=== PATIENT | male | born 1970 | race African-American/Black ===

== ENCOUNTER 2017-12-22 15:49 | Inpatient (IN) ==
--- NOTE | 2017-12-22 16:23 | XR ---
EXAM DATE: 12/22/2017 4:18 PM EST AGE/SEX: 47 years / Male INDICATIONS: . Congestion and cough. CLINICAL DATA: This is the patient's initial encounter. Patient reports that signs and symptoms have been present for 3 weeks and indicates a pain score of 0/10. MEDICAL/SURGICAL HISTORY: Hypertension. Diabetes. None. COMPARISON: No prior exams available for comparison. FINDINGS: AP and lateral views of the chest demonstrate the lungs to be symmetrically aerated without evidence of mass, infiltrate or effusion. There is some hyperaeration bilaterally. The cardiomediastinal cont ours are unremarkable. Osseous structures are intact. CONCLUSION: No acute intrathoracic disease. Electronically signed by: Timothy Suarez MD 12/22/2017 4:22 PM EST
[2017-12-22] MEDS ORDERED: MethylPREDNISolone Sod Succinate Inj 125 MG/2 ML Vial IV.PUSH ONE (16:30)
--- NOTE | 2017-12-22 16:33 | ED ---
HPI General Chief Complaint: Respiratory Symptoms Stated Complaint: Chest Congestion/Coughing [id number] Time Seen by Provider: 12/22/17 16:13 Source: patient Mode of arrival: ambulatory Limitations: no limitations History of Present Illness The patient is a 47-year-old -Citizen Of [place] male who presents to the emergency department via private vehicle for shortness of breath. The patient notes a 3-week history of shortness of breath that has been progressive and producing yellow to green sputum. The patient also complains of wheezing. The patient does have a history of tobacco use, denies any known history of CHF, cardiomyopathy, pulmonary embolism, or DVT. He denies any recent hospitalizations or surgeries, however, did recently travel from [place] to [place] via car approximately 28 hours in October. The patient denies any fever, chills, or sweats. The patient does drink 1-2 pints of alcohol per day. The patient denies any chest pain or pleuritic pain. He denies any associated nausea, vomiting, diarrhea, or abdominal pain. Symptoms are moderate and progressive. There are no current alleviating factors. MD Complaint: Reports shortness of breath Onset (ago): week(s) Context: Reports recent illness Severity: moderate Consistency/Duration: constant and progressively worsening Relieving factors: nothing Exacerbating factors: nothing Associated symptoms: Reports cough, wheezing and sputum production Treatment prior to arrival: Reports none Related Data Home Medications Medication Instructions Recorded Confirmed alprazolam 0.5 mg PO TID 12/22/17 12/22/17 amlodipine 5 mg PO DAILY 12/22/17 12/22/17 atorvastatin 10 mg PO DAILY 12/22/17 12/22/17 bisoprolol fumarate 5 mg PO DAILY 12/22/17 12/22/17 cyclobenzaprine 5 mg PO TID 12/22/17 12/22/17 fenofibrate 150 mg PO DAILY 12/22/17 12/22/17 metformin 1,000 mg PO BID 12/22/17 12/22/17 pantoprazole 20 mg PO DAILY 12/22/17 12/22/17 venlafaxine 75 mg PO DAILY 12/22/17 12/22/17 Allergies Allergy/AdvReac Type Severity Reaction Status Date / Time No Known Allergies Allergy Verified 12/22/17 15:55 Review of Systems ROS: all other systems reviewed are negative ON LICENSE OF [facility] Medical History Medical History Anxiety (Acute) Chronic GERD (Acute) Diabetes (Acute) High cholesterol (Acute) Hypertension (Acute) Social History Social History Substance History: Active Abuse Smoking Status: Heavy tobacco smoker Tobacco Type: Cigarettes How Often Do You Have a Drink Containing Alcohol: 4 or more times a week Substance Abuse Detail Alcohol: Substance Use Status: Active Substance Frequency: daily: 1 to 2 pints of vodka Last Used: today Immunization History Tetanus Immunization: Unsure Exam Narrative Exam Narrative: GENERAL: Awake, alert, pleasant 47-year-old male who appears his stated age and is in mild respiratory distress. SKIN: Focused skin assessment warm/dry. HEAD: Atraumatic. Normocephalic. EYES: Pupils equal and round. No scleral icterus. No injection or drainage. ENT: No nasal bleeding or discharge. Mucous membranes pink and moist. NECK: Trachea midline. No JVD. CARDIOVASCULAR: Regular rate and rhythm. No murmur appreciated. Heart rate in the 90s per RESPIRATORY: No accessory muscle use. Prolonged expiratory phase with wheezing noted. GASTROINTESTINAL: Abdomen soft, non-tender, nondistended. MUSCULOSKELETAL: No obvious deformities. No clubbing. No cyanosis. No edema. NEUROLOGICAL: Awake and alert. No obvious cranial nerve deficits. Motor grossly within normal limits. Normal speech. PSYCHIATRIC: Appropriate mood and affect; insight and judgment normal. Course Initial Documented Vital Signs Temperature 99.3 F 12/22/17 15:51 Pulse Rate 89 12/22/17 15:51 Respiratory Rate 16 12/22/17 15:51 Blood Pressure 140/87 12/22/17 15:51 Pulse Oximetry 93 L 12/22/17 15:51 Last Documented Vital Signs Temperature 99.3 F 12/22/17 15:51 Pulse Rate 88 12/22/17 18:05 Respiratory Rate 18 12/22/17 18:05 Blood Pressure 134/79 12/22/17 18:05 Pulse Oximetry 92 L 12/22/17 18:05 Medical Decision Making [facility] Narrative Medical decision making narrative: IV was established, labs are drawn and sent, and the patient was placed on cardiac telemetry monitoring and continuous pulse oximetry monitoring. EKG was ordered and interpreted. Chest x-ray was obtained. The patient was administered duo nebs, Solu-Medrol, and IV fluids. Chest x-ray was clear, the patient had an O2 saturation of 92% on room air with recent travel from [place] to [place], therefore, CT pulmonary angiogram was ordered to rule out PE. CT pulmonary angiogram was negative for PE, however, does reveal inflammatory changes in the lower lungs bilaterally, most likely representing pneumonia with a temperature 99.3 and a hypoxia. The patient's initial O2 sat was 92%, he was taken off of O2 via nasal cannula and dropped to 86%. Ambulation test was performed and the patient stayed at 86%. The patient does not have home O2, therefore, will be admitted for oxygen therapy, nebulizers, steroids, and antibiotics. The patient appears to have community- acquired pneumonia with hypoxia. The on-call medical service was paged for admission. I discussed the patient with Dr. Souza who agrees with admission. Medical Screen Exam Complete: Yes Emergency Medical Condition: Yes Differential Diagnosis Differential Diagnosis: Differential diagnosis includes pulmonary embolism, bronchitis, pneumonia, COPD, cardiomyopathy, pleural effusion, pulmonary edema, ACS, STEMI. Lab Data Result diagrams: 12/22/17 16:45 12/22/17 16:45 Lab Results 12/22/17 12/22/17 12/22/17 Range/Units 16:45 16:45 16:45 CBC w Diff Slide review pending WBC 10.0 (4.0-11.0) th/mm3 RBC 4.15 L (4.50-5.90) mil/mm3 Hgb 15.0 (13.0-17.0) gm/dL Hct 41.2 (39.0-51.0) % MCV 99.3 (80.0-100.0) fL MCH 36.2 H (27.0-34.0) pg MCHC 36.4 H (32.0-36.0) % RDW 13.0 (11.6-17.2) % Plt Count 351 (150-450) th/mm3 MPV 7.7 (7.0-11.0) fL Neut % (Auto) 55.2 (16.0-70.0) % Lymph % (Auto) 33.1 (9.0-44.0) % Gregory % (Auto) 8.4 H (0.0-8.0) % Eos % (Auto) 2.4 (0.0-4.0) % Baso % (Auto) 0.9 (0.0-2.0) % Neut # (Auto) 5.6 (1.8-7.7) th/mm3 Lymph # (Auto) 3.3 (1.0-4.8) th/mm3 Gregory # (Auto) 0.8 (0.0-0.9) th/mm3 Eos # (Auto) 0.2 (0.0-0.4) th/mm3 Baso # (Auto) 0.1 (0.0-0.2) th/mm3 WBC Differential . Diff Scan Auto diff confirmed Differential Comment . PT 10.2 (9.8-11.6) sec INR 1.0 Ratio APTT 28.6 (23.4-31.7) sec Sodium 140 (136-145) meq/L Potassium 3.3 L (3.5-5.1) meq/L Chloride 106 (98-107) meq/L Carbon Dioxide 21.8 (21.0-32.0) meq/L Anion Gap 12 (5-15) meq/L BUN 11 (7-18) mg/dL Creatinine 1.30 (0.60-1.30) mg/dL Estimated GFR 72 L (>89) mL/min Random Glucose 94 (74-106) mg/dL Calcium 9.5 (8.5-10.1) mg/dL Magnesium 1.8 (1.5-2.5) mg/dL Total Bilirubin 0.4 (0.2-1.0) mg/dL AST 45 H (15-37) U/L ALT 42 (12-78) U/L Alkaline Phosphatase 54 (45-117) U/L Troponin I Less than 0.02 L (0.02-0.05) ng/mL Total Protein 8.4 H (6.4-8.2) g/dL Albumin 3.8 (3.4-5.0) g/dL Imaging Data Radiologist's impression: Chest X-Ray 12/22/17 00:00 CONCLUSION: No acute intrathoracic disease. Chest CTA 12/22/17 16:30 CONCLUSION: 1. No evidence of pulmonary embolus. ECG Data EKG Prior to Arrival: No Attestation: I personally reviewed and interpreted this ECG as follows: Interpretation: EKG reveals normal sinus rhythm with a rate of 90. Inverted T wave in lead III. Discharge Plan Discharge Disposition Patient Disposition: 30 Still Patient Discharge Condition Condition: Stable Discharge Details Diagnosis: Community acquired pneumonia, Hypoxia Physicians Team ED Provider: Severiano Eller Primary Care Provider: Primary Care Rosemarie Cardenas Rxs /Orders / Referrals /Forms Prescriptions: No Action atorvastatin 10 mg Tablet 10 mg PO DAILY RF: 0 amlodipine 5 mg Tablet 5 mg PO DAILY RF: 0 pantoprazole 20 mg Tablet,Delayed Release (Dr/Ec) 20 mg PO DAILY RF: 0 bisoprolol fumarate 5 mg Tablet 5 mg PO DAILY RF: 0 alprazolam 0.5 mg Tablet 0.5 mg PO TID RF: 0 metformin 1,000 mg Tablet 1,000 mg PO BID RF: 0 cyclobenzaprine 5 mg Tablet 5 mg PO TID RF: 0 fenofibrate 150 mg Capsule 150 mg PO DAILY RF: 0 venlafaxine 75 mg Tablet Extended Release 24hr 75 mg PO DAILY RF: 0 Discharge Interventions Interventions: Vital Signs Last Done: 12/22/17 18:05 Status ED Status: Pending Admission
[2017-12-22] MEDS ORDERED: Sodium Chlor 0.9% Inj 500 ML IV.SIG SCH (17:00)
[2017-12-22 17:06] LABS: Chloride 106 meq/L (98-107); Potassium 3.3 meq/L (3.5-5.1); Sodium 140 meq/L (136-145)
[2017-12-22 17:10] LABS: Albumin 3.8 g/dL (3.4-5.0); Anion Gap 12 meq/L (5-15); Blood Urea Nitrogen 11 mg/dL (7-18); Calcium 9.5 mg/dL (8.5-10.1); Carbon Dioxide 21.8 meq/L (21.0-32.0); Glucose,Random 94 mg/dL (74-106); Magnesium 1.8 mg/dL (1.5-2.5)
[2017-12-22 17:12] LABS: Activated Partial Thrombo Time 28.6 sec (23.4-31.7); Prothrombin Time 10.2 sec (9.8-11.6)
[2017-12-22 17:13] LABS: Alanine Aminotransferase 42 U/L (12-78); Aspartate Aminotransferase 45 U/L (15-37)
[2017-12-22 17:14] LABS: Glomerular Filtration Rate 72 mL/min (>89)
[2017-12-22 17:15] LABS: Total Protein 8.4 g/dL (6.4-8.2)
[2017-12-22 17:16] LABS: Alkaline Phosphatase 54 U/L (45-117)
[2017-12-22 17:18] LABS: Baso # (Auto) 0.1 th/mm3 (0.0-0.2); Baso % (Auto) 0.9 % (0.0-2.0); Eos # (Auto) 0.2 th/mm3 (0.0-0.4); Eos % (Auto) 2.4 % (0.0-4.0); Hematocrit 41.2 % (39.0-51.0); Lymph # (Auto) 3.3 th/mm3 (1.0-4.8); Lymph % (Auto) 33.1 % (9.0-44.0); Mean Corpuscular Hemoglobin 36.2 pg (27.0-34.0); Mean Corpuscular Volume 99.3 fL (80.0-100.0); Mean Platelet Volume 7.7 fL (7.0-11.0); Mono # (Auto) 0.8 th/mm3 (0.0-0.9); Mono % (Auto) 8.4 % (0.0-8.0); Neut # (Auto) 5.6 th/mm3 (1.8-7.7); Neut % (Auto) 55.2 % (16.0-70.0); Platelet Count 351 th/mm3 (150-450); Red Blood Count 4.15 mil/mm3 (4.50-5.90)
[2017-12-22 17:24] LABS: Mean Corpuscular HGB Conc 36.4 % (32.0-36.0)
--- NOTE | 2017-12-22 18:05 | CT ---
EXAM DATE: 12/22/2017 5:58 PM EST AGE/SEX: 47 years / Male INDICATIONS: Short of breath. Cough. CLINICAL DATA: This is the patient's initial encounter. Patient reports that signs and symptoms have been present for 3 weeks and indicates a pain score of 5/10. MEDICAL/SURGICAL HISTORY: Gastroesophageal reflux disease. Diabetes. Hypertension. None. RADIATION DOSE: 20.73 CTDI (mGy) COMPARISON: No prior exams available for comparison. TECHNIQUE: Volumetric scanning was performed using a multi-row detector CT scanner during bolus infu merritt of 75 ml Omnipaque 350 (iohexol) nonionic water-soluble contrast as a single exam dose. The alicja a was post processed with a variety of visualization algorithms including full volume maximum intensi ty projection and sliding thin slab reformation. Using automated exposure control and adjustment of the mA and/or kV according to patient size, radiation dose was kept as low as reasonably achievable t o obtain optimal diagnostic quality images. DICOM format image data is available electronically for review and comparison. FINDINGS: Pulmonary Arteries: No filling defects to suggest pulmonary was. Lung: Mild groundglass opacity at the lung bases along with mild centrilobular nodularity likely are presenting inflammatory change. Effusion: None. Mediastinum: But no beyond yesterday Other: The axilla is unremarkable. CONCLUSION: 1. No evidence of pulmonary embolus. Electronically signed by: Abran Sutherland MD 12/22/2017 6:03 PM EST
[2017-12-22] MEDS ORDERED: Bisacodyl 10 MG Supp RECTAL PRN (18:54)
[2017-12-22] MEDS ORDERED: Acetaminophen 325 MG Tablet PO PRN (18:54)
[2017-12-22] MEDS ORDERED: Haloperidol Inj 5 MG/ML Ampul IV.PUSH PRN (18:57)
[2017-12-22] MEDS ORDERED: LORazepam 1 MG Tablet PO PRN (18:57)
[2017-12-22] MEDS ORDERED: Enoxaparin Inj 40 MG/0.4 ML Syringe SQ SCH (20:00)
--- NOTE | 2017-12-22 20:29 | P.HP ---
History of Present Illness Service: Hospitalist Primary Care Physician: No Primary Care Physician Chief Complaint: Cough, shortness of breath History of Present Illness: Mr. Friend is a pleasant 47-year-old -[place] male with a history of diabetes mellitus, hypertension, hyperlipidemia, sleep apnea who presents to the emergency department on 12/22/2017 due to significant productive cough, shortness of breath, subjective fever that started 3 weeks prior to this admission. He has been having yellow to green sputum production. He also complains of wheezing. Patient denies any chest pain, abdominal pain, changes in bladder or bowel habits. Patient recently moved from [place] to [place]. CT angiogram was done in the ED which showed no PE. On room air his oxygen saturation dropped to 86%. Patient was given steroid, breathing treatments, antibiotics in the ED. Past medical history: Diabetes mellitus, hypertension, hyperlipidemia, sleep apnea Past surgical history: Back surgery Social history: Patient smokes 1 pack a day. Drinks Fifth a day. Denies using illicit drugs Family history: Mother with diabetes mellitus and variceal bleed due to alcoholic liver disease, father had diabetes mellitus and . Inpatient Certification: I certify that the inpatient services were ordered in accordance with Medicare regulations governing the order. This includes certification that hospital inpatient services are reasonable and necessary and in the case of services not specified as inpatient-only under 42 CFR 419.22(n), that they are appropriately provided as inpatient services in accordance to with the 2-midnight benchmark under 43 CFR 412.3(e) Estimated Total Length of Stay (Days): 2 Plans for Post Hospital Care: Home Review of Systems All other systems reviewed negative except as stated in HPI [facility] - History History Provided By: Patient, Significant Other - Medical History Medical History: Medical History (Last Reviewed 12/22/17 @ 21:51 by Archana Souza DO) Anxiety Chronic GERD Diabetes High cholesterol Hypertension - Tobacco History Tobacco Use In Past 30 Days: Yes Smoking Status: Heavy tobacco smoker Tobacco Type: Cigarettes - Alcohol History How Often Do You Have a Drink Containing Alcohol: 4 or more times a week - Substance Use History Substance History: Active Abuse - Substance Use Type Alcohol Status: Active Frequency: daily: 1 to 2 pints of vodka Last Used: today - Immunization History Tetanus Immunization: Unsure Medications and Allergies Active Medications: Active Medications Acetaminophen (Tylenol) 650 mg PO Q4H PRN PRN Reason: Headache, fever, pain 1-4 Al Hydroxide/Mg Hydroxide (Milk Of Magnesia Liq) 30 ml PO Q12H PRN PRN Reason: Mild Constipation Albuterol (Duoneb Neb (Michela)) 1 ampul NEB Q6HR WHILE AWAKE NEB [facility] Last Admin: 12/22/17 19:41 Dose: 1 ampul Albuterol (Duoneb Neb (Prn)) 1 ampul NEB Q4HR NEB PRN PRN Reason: DYSPNEA Bisacodyl (Dulcolax Supp) 10 mg RECTAL DAILY PRN PRN Reason: SEVERE CONSITIPATION Enoxaparin Sodium (Lovenox Inj) 40 mg SQ Q24H MICHELA Flumazenil (Romazecon Inj) 0.2 mg IV.PUSH Q1M PRN PRN Reason: OVERSEDATION Haloperidol Lactate (Haldol Inj) 1 mg IV.PUSH Q15M PRN PRN Reason: for severe agitation Lactulose (Lactulose Liq) 30 ml PO DAILY PRN PRN Reason: SEVERE CONSITIPATION Levofloxacin (Levaquin) 750 mg PO DAILY [facility] Stop: 12/29/17 08:59 Lorazepam (Ativan) 1 mg PO Q4H PRN PRN Reason: for CIWA 8-10 Lorazepam (Ativan) 2 mg PO Q2H PRN PRN Reason: for CIWA 11-14 Lorazepam (Ativan Inj) 2 mg IV.PUSH Q2H PRN PRN Reason: for CIWA 11-14 Lorazepam (Ativan Inj) 2 mg IV.PUSH Q1H PRN PRN Reason: for CIWA 15-20 Lorazepam (Ativan Inj) 2 mg IV.PUSH Q15M PRN PRN Reason: for CIWA > 20 Lorazepam (Ativan Inj) 1 mg IV.PUSH Q4H PRN PRN Reason: for CIWA 8-10 Ondansetron HCl (Zofran Inj) 4 mg IV.PUSH Q6H PRN PRN Reason: NAUSEA OR VOMITING Sennosides (Senokot) 17.2 mg PO Q12H PRN PRN Reason: Moderate Constipation Allergies Allergy/AdvReac Type Severity Reaction Status Date / Time No Known Allergies Allergy Verified 12/22/17 15:55 Home Medications Medication Instructions Recorded Confirmed Type alprazolam 0.5 mg PO TID 12/22/17 12/22/17 History amlodipine 5 mg PO DAILY 12/22/17 12/22/17 History atorvastatin 10 mg PO DAILY 12/22/17 12/22/17 History bisoprolol fumarate 5 mg PO DAILY 12/22/17 12/22/17 History cyclobenzaprine 5 mg PO TID 12/22/17 12/22/17 History fenofibrate 150 mg PO DAILY 12/22/17 12/22/17 History metformin 1,000 mg PO BID 12/22/17 12/22/17 History pantoprazole 20 mg PO DAILY 12/22/17 12/22/17 History venlafaxine 75 mg PO DAILY 12/22/17 12/22/17 History Exam Vital signs: Vital Signs 12/22/17 15:51 12/22/17 16:49 12/22/17 16:58 Temperature 99.3 F Pulse Rate 89 89 86 Respiratory Rate 16 24 20 Blood Pressure 140/87 145/89 H Pulse Oximetry 93 L 93 L 12/22/17 17:00 12/22/17 18:05 12/22/17 19:41 Temperature Pulse Rate 86 88 90 Respiratory Rate 18 18 Blood Pressure 134/79 Pulse Oximetry 93 L 92 L 95 12/22/17 20:09 Temperature Pulse Rate 89 Respiratory Rate Blood Pressure 128/81 Pulse Oximetry 94 L Intake & Output 12/22/17 12/22/17 12/23/17 06:59 18:59 06:59 Intake Total 500 / 500 150 / 150 Balance 500 / 500 150 / 150 Weight 116 kg Intake: IV 500 / 500 150 / 150 Levaquin 750 mg Premix Inj 150 150 / 150 ML @ 100 mls/hr IV.SIG ONCE ONE Rx#:[id number] NS Inj 500 ML @ 1000 mls/hr IV. 500 / 500 SIG BOLUS MICHELA Rx#:[id number] Narrative: GENERAL: This is a well-nourished, well-developed patient, in no apparent distress. SKIN: No rashes, ecchymoses or lesions. Warm and dry. HEAD: Atraumatic. Normocephalic. No temporal or scalp tenderness. EYES: Pupils equal round and reactive. No injection or drainage. ENT: Nose without bleeding, purulent drainage or septal hematoma. Airway patent. NECK: Trachea midline. No lymphadenopathy. Supple, nontender, no meningeal signs. CARDIOVASCULAR: Regular rate and rhythm without murmurs, gallops, or rubs. No JVD. RESPIRATORY: Moderate air entry. Diffuse wheezing noted especially in the upper lung [place]. GASTROINTESTINAL: Abdomen soft, non-tender, nondistended. No guarding. MUSCULOSKELETAL: Extremities without clubbing, cyanosis, or edema. NEUROLOGICAL: Awake and alert. Cranial nerves II through XII intact. No focal neurological deficits. Normal speech. Results - Labs CBC & Chem 7: 12/22/17 16:45 12/22/17 16:45 Labs: Laboratory Results - last 24 hr 12/22/17 12/22/17 12/22/17 16:45 16:45 16:45 CBC w Diff Slide review pending WBC 10.0 RBC 4.15 L Hgb 15.0 Hct 41.2 MCV 99.3 MCH 36.2 H MCHC 36.4 H RDW 13.0 Plt Count 351 MPV 7.7 Neut % (Auto) 55.2 Lymph % (Auto) 33.1 [place] % (Auto) 8.4 H Eos % (Auto) 2.4 Baso % (Auto) 0.9 Neut # (Auto) 5.6 Lymph # (Auto) 3.3 [place] # (Auto) 0.8 Eos # (Auto) 0.2 Baso # (Auto) 0.1 WBC Differential . Diff Scan Auto diff confirmed Differential Comment . PT 10.2 INR 1.0 APTT 28.6 Sodium 140 Potassium 3.3 L Chloride 106 Carbon Dioxide 21.8 Anion Gap 12 BUN 11 Creatinine 1.30 Estimated GFR 72 L Random Glucose 94 Calcium 9.5 Magnesium 1.8 Total Bilirubin 0.4 AST 45 H ALT 42 Alkaline Phosphatase 54 Troponin I Less than 0.02 L Total Protein 8.4 H Albumin 3.8 - Imaging Impressions Chest X-Ray 12/22/17 00:00 CONCLUSION: No acute intrathoracic disease. Chest CTA 12/22/17 16:30 CONCLUSION: 1. No evidence of pulmonary embolus. Caprini VTE Risk Assessment Caprini VTE Risk Assessment: Moderate/High Risk (score >= 2) Caprini Risk Assessment Model: Point Value = 1 Point Value = 2 Point Value = 3 Point Value = 5 Age 41-60 Minor surgery BMI > 25 kg/m2 Swollen legs Varicose veins or History of unexplained or recurrent spontaneous Oral contraceptives or hormone replacement Sepsis (< 1 month) Serious lung disease, including pneumonia (< 1 month) Abnormal pulmonary function Acute myocardial infarction Congestive heart failure (< 1 month) History of inflammatory bowel disease Medical patient at bed rest Age 61-74 Arthroscopic surgery Major open surgery (> 45 min) Laparoscopic surgery (> 45 min) Malignancy Confined to bed (> 72 hours) Immobilizing plaster cast Central venous access Age >= 75 History of VTE Family history of VTE Factor V Leiden Prothrombin 64199A Lupus anticoagulant Anticardiolipin antibodies Elevated serum homocysteine Heparin-induced thrombocytopenia Other congenital or acquired thrombophilia Stroke (< 1 month) Elective arthroplasty Hip, pelvis, or leg fracture Acute spinal cord injury (< 1 month) Prophylaxis Regimen: Total Risk Factor Score Risk Level Prophylaxis Regimen 0-1 Low Early ambulation 2 Moderate Order ONE of the following: *Sequential Compression Device (SCD) *Heparin 5000 units SQ BID 3-4 Higher Order ONE of the following medications: *Heparin 5000 units SQ TID *Enoxaparin/Lovenox 40 mg SQ daily (WT < 150 kg, CrCl > 30 mL/min) *Enoxaparin/Lovenox 30 mg SQ daily (WT < 150 kg, CrCl > 10-29 mL/min) *Enoxaparin/Lovenox 30 mg SQ BID (WT < 150 kg, CrCl > 30 mL/min) AND/OR *Sequential Compression Device (SCD) 5 or more Highest Order ONE of the following medications: *Heparin 5000 units SQ TID (Preferred with Epidurals) *Enoxaparin/Lovenox 40 mg SQ daily (WT < 150 kg, CrCl > 30 mL/min) *Enoxaparin/Lovenox 30 mg SQ daily (WT < 150 kg, CrCl > 10-29 mL/min) *Enoxaparin/Lovenox 30 mg SQ BID (WT < 150 kg, CrCl > 30 mL/min) AND *Sequential Compression Device (SCD) Assessment and Plan - Plan Mr. Friend is a pleasant 47-year-old -[place] male with a history of diabetes mellitus, hypertension, hyperlipidemia, sleep apnea who presents to the emergency department on 12/22/2017 due to 3-week duration of shortness of breath and productive cough. Patient was hypoxic in the ED with O2 saturation 86% on room air. Acute hypoxic respiratory failure Probable COPD exacerbation Possible bronchitis Continue supplemental oxygen to keep O2 saturation above 90% Continue DuoNeb scheduled and as needed. Continue Levaquin 750 mg p.o. daily Patient received IV Solu-Medrol 125 mg in the ED. We will continue prednisone 50 mg daily Diabetes mellitus Patient uses metformin at home. We will continue sliding scale insulin for now. Hypertension Hyperlipidemia Continue amlodipine 5 mg daily, bisoprolol 5 mg daily Continue atorvastatin and fenofibrate Sleep apnea patient uses CPAP at home. Tobacco abuse Alcohol abuse We will start nicotine patch. Also start CIWA protocol. Patient is counseled regarding alcohol and tobacco abuse. Full code. Lovenox.
[2017-12-22] MEDS ORDERED: Dextrose 50% in Water 50 ML Vial IV.PUSH PRN (22:01)
[2017-12-23] MEDS: ALPRAZolam 0.5 MG Tablet PO SCH ×2 (08:31→12:28)
[2017-12-23] MEDS: Insulin NovoLOG Aspart Correctional Sugar Inj SQ SCH ×2 (08:31→12:28)
[2017-12-23] MEDS ORDERED: amLODIPine 5 MG Tablet PO SCH (09:00)
[2017-12-23] MEDS ORDERED: Fenofibrate 145 MG Tablet PO SCH (09:00)
[2017-12-23] MEDS ORDERED: levoFLOXacin 750 MG Tablet PO SCH (09:00)
[2017-12-23 12:03] VITALS: BP 136/82; RESP 20; TEMP 97.6
[2017-12-23 14:04] VITALS: PULSE 97
[2017-12-23 14:34] VITALS: O2SAT 92
--- NOTE | 2017-12-23 15:09 | P.PN ---
Subjective Interval history: Follow-up for COPD exacerbation. Patient is currently doing well. His breathing is much improved. No fever or chills. Walk test reveals no need for home oxygen. Physical Exam Vital signs: Vital Signs 12/22/17 15:51 12/22/17 16:49 12/22/17 16:58 Temperature 99.3 F Pulse Rate 89 89 86 Respiratory Rate 16 24 20 Blood Pressure 140/87 145/89 H Pulse Oximetry 93 L 93 L Pulse Oximetry [Exertion on Room Air] Pulse Oximetry [Resting on Room Air] 12/22/17 17:00 12/22/17 18:05 12/22/17 19:41 Temperature Pulse Rate 86 88 90 Respiratory Rate 18 18 Blood Pressure 134/79 Pulse Oximetry 93 L 92 L 95 Pulse Oximetry [Exertion on Room Air] Pulse Oximetry [Resting on Room Air] 12/22/17 20:00 12/22/17 20:09 12/22/17 22:30 Temperature 96.4 F L Pulse Rate 89 102 H Respiratory Rate 22 Blood Pressure 128/81 134/76 Pulse Oximetry 95 94 L 92 L Pulse Oximetry [Exertion on Room Air] Pulse Oximetry [Resting on Room Air] 12/22/17 23:35 12/23/17 00:00 12/23/17 01:58 Temperature 97.5 F L Pulse Rate 77 Respiratory Rate 20 Blood Pressure 134/76 Pulse Oximetry 94 L 97 94 L Pulse Oximetry [Exertion on Room Air] Pulse Oximetry [Resting on Room Air] 12/23/17 07:36 12/23/17 07:37 12/23/17 08:00 Temperature 98.6 F Pulse Rate 85 101 H Respiratory Rate 20 18 Blood Pressure 138/84 Pulse Oximetry 95 94 L Pulse Oximetry [Exertion on Room Air] Pulse Oximetry [Resting on Room Air] 12/23/17 12:00 12/23/17 14:03 12/23/17 14:32 Temperature 97.6 F Pulse Rate 98 H 97 H Respiratory Rate 20 20 Blood Pressure 136/82 Pulse Oximetry 96 Pulse Oximetry [Exertion on Room Air] 94 L Pulse Oximetry [Resting on Room Air] 92 L Intake & Output 12/22/17 12/23/17 12/23/17 18:59 06:59 18:59 Intake Total 500 / 500 150 / 150 Output Total 60 / 60 Balance 500 / 500 90 / 90 Weight 116 kg 115 kg Intake: IV 500 / 500 150 / 150 Levaquin 750 mg Premix Inj 150 150 / 150 ML @ 100 mls/hr IV.SIG ONCE ONE Rx#:[id number] NS Inj 500 ML @ 1000 mls/hr IV. 500 / 500 SIG BOLUS YESSI Rx#:[id number] Output: Urine 60 / 60 Other: Weight On Admission 115 kg Narrative: GENERAL: Alert, oriented x3, NAD. SKIN: Warm and dry. HEAD: Normocephalic. EYES: No scleral icterus. No injection or drainage. NECK: Supple, trachea midline. No JVD or lymphadenopathy. CARDIOVASCULAR: Regular rate and rhythm without murmurs, gallops, or rubs. RESPIRATORY: Breath sounds equal bilaterally. No accessory muscle use. GASTROINTESTINAL: Abdomen soft, non-tender, nondistended. MUSCULOSKELETAL: No cyanosis, or edema. BACK: Nontender without obvious deformity. No CVA tenderness. Results - Labs CBC & Chem 7: 12/22/17 16:45 12/22/17 16:45 Laboratory Results - last 24 hr 12/22/17 12/22/17 12/22/17 16:45 16:45 16:45 CBC w Diff Slide review pending WBC 10.0 RBC 4.15 L Hgb 15.0 Hct 41.2 MCV 99.3 MCH 36.2 H MCHC 36.4 H RDW 13.0 Plt Count 351 MPV 7.7 Neut % (Auto) 55.2 Lymph % (Auto) 33.1 [place] % (Auto) 8.4 H Eos % (Auto) 2.4 Baso % (Auto) 0.9 Neut # (Auto) 5.6 Lymph # (Auto) 3.3 [place] # (Auto) 0.8 Eos # (Auto) 0.2 Baso # (Auto) 0.1 WBC Differential . Diff Scan Auto diff confirmed Differential Comment . PT 10.2 INR 1.0 APTT 28.6 Sodium 140 Potassium 3.3 L Chloride 106 Carbon Dioxide 21.8 Anion Gap 12 BUN 11 Creatinine 1.30 Estimated GFR 72 L Random Glucose 94 Calcium 9.5 Magnesium 1.8 Total Bilirubin 0.4 AST 45 H ALT 42 Alkaline Phosphatase 54 Troponin I Less than 0.02 L Total Protein 8.4 H Albumin 3.8 Microbiology 12/22/17 16:50 Blood - Peripheral Aerobic Blood Culture - Preliminary No growth in 1 day 12/22/17 16:50 Blood - Peripheral Anaerobic Blood Culture - Preliminary No growth in 1 day 12/22/17 16:50 Blood - Peripheral Aerobic Blood Culture - Preliminary No growth in 1 day 12/22/17 16:50 Blood - Peripheral Anaerobic Blood Culture - Preliminary No growth in 1 day 12/22/17 16:57 Nasal Wash Influenza Types A,B Antigen - Final Negative for FLU A and B antigen Infection due to influenza A or B cannot be ruled out since the antigen present in the sample may be below the detection limit of the test. - Imaging Impressions Chest X-Ray 12/22/17 00:00 CONCLUSION: No acute intrathoracic disease. Chest CTA 12/22/17 16:30 CONCLUSION: 1. No evidence of pulmonary embolus. Assessment and Plan - Plan Mr. Friend is a pleasant 47-year-old -[place] male with a history of diabetes mellitus, hypertension, hyperlipidemia, sleep apnea who presents to the emergency department on 12/22/2017 due to 3-week duration of shortness of breath and productive cough. Patient was hypoxic in the ED with O2 saturation 86% on room air. Acute hypoxic respiratory failure Probable COPD exacerbation Possible bronchitis Continued supplemental oxygen to keep O2 saturation above 90% Continued DuoNeb scheduled and as needed. Continue Levaquin 750 mg p.o. daily Patient received IV Solu-Medrol 125 mg in the ED. We continued prednisone 50 mg daily Diabetes mellitus Patient uses metformin at home. We will continue sliding scale insulin for now. Hypertension Hyperlipidemia Continue amlodipine 5 mg daily, bisoprolol 5 mg daily Continue atorvastatin and fenofibrate Sleep apnea patient uses CPAP at home. Tobacco abuse Alcohol abuse We will start nicotine patch. Also start CIWA protocol. Patient is counseled regarding alcohol and tobacco abuse. Full code. Lovenox. Discharge patient to home Condition on discharge: Improved Regular Diet as tolerated Ad Lois activity Rx written: Levaquin 750 mg p.o. daily x5 Prednisone 50 mg daily x5 Follow-up with primary care physician within 1 week.
--- NOTE | 2017-12-23 15:26 | ECG ---
Date Performed: 12/22/2017 Time Performed: 16:42:54 PTAGE: 47 years EKG: Sinus rhythm NORMAL ECG NO PREVIOUS TRACING DOCTOR: Luke Martinez Interpretating Date/Time 12/23/2017 15:21:15
== END 2017-12-23 16:00 | disposition home or self-care (01) ==
LOC: PHED 15:49 → PHEDA 18:52 → PH3 21:42
PROVIDERS: ADMIT Hospitalist